=== PATIENT | female | born 1955 | race Caucasian/White ===

== ENCOUNTER 2022-03-05 10:19 | Outpatient (CLI) | payer OTHER | END 2022-03-05 10:20 | disposition home or self-care (01) | LOC: RAD 10:19 | PROVIDERS: ATTEND Nurse Practitioner Family | DX: M25.512 Pain in left shoulder (principal) ==

== ENCOUNTER 2023-10-20 09:33 | Outpatient (CLI) | payer OTHER | END 2023-10-20 09:34 | disposition home or self-care (01) | LOC: BICMAMMO 09:33 | PROVIDERS: ATTEND Family Medicine | DX: Z12.31 Encounter for screening mammogram for malignant neoplasm of breast (principal); Z13.820 Encounter for screening for osteoporosis; M85.89 Other specified disorders of bone density and structure, multiple sites; Z78.0 Asymptomatic menopausal state | CPT/HCPCS: 77063; 77067; 77080 ==

== ENCOUNTER 2024-02-16 14:28 | Outpatient (CLI) | payer OTHER | END 2024-02-16 14:29 | disposition home or self-care (01) | LOC: BICULT 14:28 | PROVIDERS: ATTEND Family Medicine | DX: M25.361 Other instability, right knee (principal); M71.21 Synovial cyst of popliteal space [Baker], right knee | CPT/HCPCS: 76882 ==

== ENCOUNTER 2025-01-10 11:21 | Outpatient (CLI) | payer OTHER | END 2025-01-10 11:22 | disposition home or self-care (01) | LOC: BICMAMMO 11:21 | PROVIDERS: ATTEND Family Medicine | DX: Z12.31 Encounter for screening mammogram for malignant neoplasm of breast (principal) | CPT/HCPCS: 77063; 77067 ==

== ENCOUNTER 2025-03-01 07:32 | Outpatient (CLI) | payer OTHER | END 2025-03-01 07:33 | disposition home or self-care (01) | LOC: BICMRI 07:32 | PROVIDERS: ATTEND Orthopaedic Surgery | DX: M17.11 Unilateral primary osteoarthritis, right knee (principal); M70.51 Other bursitis of knee, right knee; M76.9 Unspecified enthesopathy, lower limb, excluding foot; R93.7 Abnormal findings on diagnostic imaging of other parts of musculoskeletal system ==